=== PATIENT | female | born 1960 | race Caucasian/White ===

== ENCOUNTER 2020-09-14 01:38 | Outpatient (CLI) | payer BC | END 2020-09-14 01:39 | disposition home or self-care (01) | LOC: EMS 01:38 | DX: R07.89 Other chest pain (principal); F41.9 Anxiety disorder, unspecified | CPT/HCPCS: A0425; A0427 ==

== ENCOUNTER 2020-09-14 02:14 | Emergency (ER) | payer BC ==
--- NOTE | 2020-09-14 03:06 | ED Physician Documentation ---
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 Left chest pressure. Also feeling anxiety about it now. said she seems anxious and slightly confused at times.) Timing - duration: Hours Timing - details: Gradual onset, Still present, Waxing and waning Quality: Tightness Location: Left chest Radiation: Left upper extremity Improved by: No: Rest Worsened by: No: Inspiration, Movement, Palpation Associated symptoms: No: Shortness of air, Nausea, General Weakness, Palpitations, Cough Similar symptoms before: Has not had sx before Review of Systems Constitutional: denies: Fever, Chills Nose: denies: Rhinorrhea / runny nose, Congestion Throat: denies: Sore throat Cardiac: denies: Palpitations, Pedal edema, Calf pain Respiratory: denies: Cough GI: denies: Abdominal Pain, Nausea, Vomiting, Diarrhea Skin: denies: Rash, Lesions Musculoskeletal: denies: Neck pain, Back pain, Extremity swelling Neurologic: denies: Near syncope, Headache PD PAST MEDICAL HISTORY - Past Medical History Past Medical History: Yes Cardiovascular: Hypertension Respiratory: None Neuro: None Endocrine/Autoimmune: None Psych: Anxiety, Panic attacks - Past Surgical History Past Surgical History: No - Present Medications Home Medications: Ambulatory Orders Medication Instructions Recorded Confirmed Alprazolam [Xanax] 0.25 mg PO DAILY PRN 09/14/20 09/14/20 Cevimeline HCl [Evoxac] 30 mg PO TID 09/14/20 09/14/20 Lisinopril/Hydrochlorothiazide 1 tab PO DAILY 09/14/20 09/14/20 [Zestoretic 20-12.5 mg Tablet] Valacyclovir HCl [Valtrex] 500 mg PO DAILY PRN 09/14/20 09/14/20 Zolpidem Tartrate [Ambien] 10 mg PO DAILY PRN 09/14/20 09/14/20 buPROPion [Wellbutrin Sr] 150 mg PO DAILY 09/14/20 09/14/20 - Allergies Allergies/Adverse Reactions: Allergies Allergy/AdvReac Type Severity Reaction Status Date / Time No Known Drug Allergies Allergy Verified 09/14/20 02:24 - Social History Does the pt smoke?: No Smoking Status: Never smoker Does the pt drink ETOH?: Yes Does the pt have substance abuse?: No PD ED PE NORMAL - Vitals Vital signs reviewed: Yes - General General: Alert and oriented X 3, Well developed/nourished, Other (anxious) - HEENT HEENT: Pharynx benign - Neck Neck: Supple, no meningeal sign, No adenopathy - Cardiac Cardiac: RRR, No murmur - Respiratory Respiratory: Clear bilaterally, Other (no chestwall tenderness. No rash nor redness. ) - Abdomen Abdomen: Soft, Non tender, Non distended - Female Female : Deferred - Rectal Rectal: Deferred - Back Back: No CVA TTP - Derm Derm: Normal color, Warm and dry, No rash - Extremities Extremities: Normal ROM s pain, No edema, No calf tenderness / cord - Neuro Neuro: Alert and oriented X 3, No motor deficit, Normal speech Results - Vitals Vitals: Oxygen O2 Source Room air - EKG (time done) 02:22 Rate: Rate (enter#) (68) Rhythm: NSR [place]: Normal Intervals: Normal ND QRS: Normal Ischemia: Normal ST segments. No: ST elevation c/w ischemia, ST depression Compare to prior EKG: Old EKG unavailable - Labs Labs: Laboratory Tests 09/14/20 09/14/20 09/14/20 03:26 03:26 03:26 WBC 5.5 RBC 3.36 L Hgb 11.6 L Hct 33.2 L MCV 98.8 MCH 34.5 H MCHC 34.9 RDW 11.5 L Plt Count 190 MPV 8.6 Neut # (Auto) 3.8 Lymph # (Auto) 1.1 L [place] # (Auto) 0.5 Eos # (Auto) 0.1 Baso # (Auto) 0.0 Absolute Nucleated RBC 0.00 Nucleated RBC % 0.0 Sodium 125 L Potassium 3.8 Chloride 90 L Carbon Dioxide 23 Anion Gap 12.0 BUN 11 Creatinine 0.6 Estimated GFR (MDRD) 102 Glucose 95 Calcium 8.6 Total Bilirubin 0.5 AST 22 ALT 15 Alkaline Phosphatase 38 L Troponin I High Sens 3.3 Total Protein 6.3 L Albumin 4.0 Globulin 2.3 Albumin/Globulin Ratio 1.7 Lipase 40 PD MEDICAL DECISION MAKING - ED course Complexity details: considered differential (trop and ECG are normal. Sodium is low but pt states chronically low. ), d/w patient Departure - Departure Disposition: 01 Home, Self Care Clinical Impression: Chest pressure, Hyponatremia Condition: Stable Record reviewed to determine appropriate education?: Yes Instructions: ED Chest Pain NonCardiac Comments: Stay well-hydrated. For now continue usual medications. However talk with your primary care about changing your lisinopril/hydrochlorothiazide to just lisinopril as your sodium was low at 125. The diuretic is the most likely cause. Low sodium can account for some of your symptoms (weakness, some confusion). Underhydration could account for some as well. Hyponatremia may be associated with the bupropion as well but I would suggest starting with the HCTZ first. Your EKG and troponin are normal without any signs of heart injury/heart attack. Not sure of the cause of the chest pressure. It may have been anxiety. Stay well-hydrated and avoid excess heat as will your other medications can make you dehydrated easily and less heat tolerant. To make sure you do not get hypothermic. Otherwise I hope you have a further good stay here on [place]. Discharge Date/Time: 09/14/20 04:19
[2020-09-14 03:33] LABS: BASOPHILS % (AUTO) 0.5 %; EOSINOPHILS # (AUTO) 0.1 10^3/uL (0.0-0.7); EOSINOPHILS % (AUTO) 1.1 %; HCT - HEMATOCRIT 33.2 % (37.0-47.0); HGB - HEMOGLOBIN 11.6 g/dL (12.0-16.0); LYMPHOCYTES # (AUTO) 1.1 10^3/uL (1.5-3.5); LYMPHOCYTES % (AUTO) 19.3 %; MEAN CORPUSCULAR HEMOGLOBIN 34.5 pg (27.0-31.0); MEAN CORPUSCULAR HGB CONC 34.9 g/dL (32.0-36.0); MEAN CORPUSCULAR VOLUME 98.8 fL (81.0-99.0); MEAN PLATELET VOLUME 8.6 fL (7.9-10.8); MONOCYTES # (AUTO) 0.5 10^3/uL (0.0-1.0); MONOCYTES % (AUTO) 9.5 %; NEUTROPHILS # (AUTO) 3.8 10^3/uL (1.5-6.6); NEUTROPHILS % (AUTO) 69.4 %; PLT - PLATELET COUNT 190 10^3/uL (130-450); RED BLOOD COUNT 3.36 10^6/uL (4.20-5.40); RED CELL DISTRIBUTION WIDTH 11.5 % (12.0-15.0); WHITE BLOOD COUNT 5.5 x10^3/uL (4.8-10.8)
[2020-09-14 03:45] LABS: ALBUMIN/GLOBULIN RATIO 1.7 (1.0-2.2); BILIRUBIN,TOTAL 0.5 mg/dL (0.2-1.0); CALCIUM 8.6 mg/dL (8.5-10.3); CREATININE 0.6 mg/dL (0.4-1.0); POTASSIUM 3.8 mmol/L (3.5-5.0); TOTAL PROTEIN 6.3 g/dL (6.7-8.2)
[2020-09-14] MEDS ORDERED: SODIUM CHLORIDE 0.9% 1,000 ML IV STA (03:52)
[2020-09-14] MEDS ORDERED: LORazepam 2 MG/ML VIAL IVP STA (04:01)
[2020-09-14 04:12] VITALS: BP 126/77
== END 2020-09-14 04:19 | disposition home or self-care (01) ==
LOC: ED 02:14
DX: R07.89 Other chest pain (principal); E87.1 Hypo-osmolality and hyponatremia
CPT/HCPCS: 36415; 80053; 83690; 84484; 85025; 93005; 99284